=== PATIENT | female | born 1955 | race Caucasian/White ===

== ENCOUNTER 2022-09-07 05:48 | Outpatient (REF) | payer MEDICARE, SELFPAY ==
[2022-09-07 05:55] LABS: MANUAL DIFF FLAG NO
[2022-09-07 06:26] LABS: Basophils Percent Auto 0.5 % (0-2); Eosinophils Absolute Auto 0.3 X10*3/uL (0.0-0.4); Eosinophils Percent Auto 4.7 % (0-4); Hematocrit 35.5 % (37.0-47.0); Hemoglobin 11.8 g/dl (12.0-16.0); Imm Gran Abs Auto 0.02 X10*3/uL (0.00-0.03); Imm Gran Pct Auto 0.4 % (0.0-0.4); Mean Corpuscular HGB Conc 33.2 g/dl (31.0-35.0); Mean Corpuscular Hemoglobin 32.7 pg (27.0-33.0); Mean Corpuscular Volume 98.3 fL (80.0-98.0); Mean Platelet Volume 10.7 fL (9.4-12.3); Monocytes Absolute Auto 0.4 X10*3/uL (0.1-1.2); Neutrophils Absolute Auto 2.7 x10*3/uL (2.0-8.3); Neutrophils Percent Auto 49.4 % (45-73); Platelet Count 245 X10*3/uL (160-400); Red Blood Count 3.61 X10*6/uL (4.20-5.50); Red Cell Distribution Width 12.8 % (11.0-16.0); White Blood Count 5.5 X10*3/uL (4.8-10.8)
[2022-09-07 06:41] LABS: Alanine Aminotransferase 25 U/L (0-31); Albumin Level 3.2 g/dL (3.5-5.0); Alkaline Phosphatase 73 U/L (39-117); Anion Gap 12 (12-20); Aspartate Amino Transferase 20 U/L (5-31); Bilirubin Total 0.3 mg/dL (0.0-1.0); Blood Urea Nitrogen 11 mg/dL (9-16); Carbon Dioxide 23 mmol/L (22-29); Chloride 107 mmol/L (96-108); Estimated Glomerular Filt Rate > 60; Glucose Random 172 mg/dL (60-115); Potassium 4.1 mmol/L (3.3-5.1); Sodium 138 mmol/L (135-145); Total Protein 6.7 g/dL (6.5-8.0)
== END 2022-09-07 05:49 | disposition home or self-care (01) ==
LOC: HO.MMNH2L 05:48
PROVIDERS: Visit Provider Family Medicine
DX: I10 Essential (primary) hypertension (principal); E11.9 Type 2 diabetes mellitus without complications
CPT/HCPCS: 36415; 80053; 85025

== ENCOUNTER 2022-09-13 14:07 | Outpatient (REF) | payer MEDICARE, SELFPAY ==
[2022-09-13 15:14] LABS: CDiff Gene PCR NEGATIVE (Negative)
== END 2022-09-13 14:08 | disposition home or self-care (01) ==
LOC: HO.MMNH2L 14:07
PROVIDERS: Visit Provider Family Medicine
DX: R19.7 Diarrhea, unspecified (principal)
CPT/HCPCS: 87493

== ENCOUNTER 2022-09-14 05:47 | Outpatient (REF) | payer MEDICARE, SELFPAY ==
[2022-09-14 05:50] LABS: MANUAL DIFF FLAG NO
[2022-09-14 06:02] LABS: Basophils Absolute Auto 0.1 X10*3/uL (0.0-0.2); Basophils Percent Auto 0.7 % (0-2); Eosinophils Absolute Auto 0.2 X10*3/uL (0.0-0.4); Eosinophils Percent Auto 3.2 % (0-4); Hemoglobin 11.8 g/dl (12.0-16.0); Imm Gran Abs Auto 0.02 X10*3/uL (0.00-0.03); Imm Gran Pct Auto 0.3 % (0.0-0.4); Lymphocytes Absolute Auto 2.6 X10*3/uL (1.2-4.9); Lymphocytes Percent Auto 35.8 % (20-40); Mean Corpuscular HGB Conc 33.7 g/dl (31.0-35.0); Mean Corpuscular Hemoglobin 32.6 pg (27.0-33.0); Mean Corpuscular Volume 96.7 fL (80.0-98.0); Monocytes Absolute Auto 0.6 X10*3/uL (0.1-1.2); Monocytes Percent Auto 8.7 % (2-11); Neutrophils Absolute Auto 3.7 x10*3/uL (2.0-8.3); Neutrophils Percent Auto 51.3 % (45-73); Platelet Count 356 X10*3/uL (160-400); Red Blood Count 3.62 X10*6/uL (4.20-5.50); Red Cell Distribution Width 12.6 % (11.0-16.0); White Blood Count 7.2 X10*3/uL (4.8-10.8)
[2022-09-14 06:16] LABS: Anion Gap 13 (12-20); Blood Urea Nitrogen 11 mg/dL (9-16); Calcium 9.1 mg/dL (8.4-10.2); Carbon Dioxide 26 mmol/L (22-29); Chloride 104 mmol/L (96-108); Estimated Glomerular Filt Rate > 60; Glucose Random 151 mg/dL (60-115); Potassium 3.9 mmol/L (3.3-5.1); Sodium 139 mmol/L (135-145)
== END 2022-09-14 05:48 | disposition home or self-care (01) ==
LOC: HO.MMNH2L 05:47
PROVIDERS: Visit Provider Family Medicine
DX: I10 Essential (primary) hypertension (principal)
CPT/HCPCS: 36415; 80048; 85025

== ENCOUNTER 2022-09-20 06:20 | Outpatient (REF) | payer MEDICARE, SELFPAY ==
[2022-09-20 06:13] LABS: MANUAL DIFF FLAG NO
[2022-09-20 06:53] LABS: Basophils Percent Auto 0.6 % (0-2); Eosinophils Absolute Auto 0.3 X10*3/uL (0.0-0.4); Eosinophils Percent Auto 4.3 % (0-4); Hematocrit 36.9 % (37.0-47.0); Hemoglobin 12.5 g/dl (12.0-16.0); Imm Gran Abs Auto 0.01 X10*3/uL (0.00-0.03); Imm Gran Pct Auto 0.2 % (0.0-0.4); Lymphocytes Absolute Auto 2.6 X10*3/uL (1.2-4.9); Lymphocytes Percent Auto 41.4 % (20-40); Mean Corpuscular HGB Conc 33.9 g/dl (31.0-35.0); Mean Corpuscular Hemoglobin 33.2 pg (27.0-33.0); Mean Corpuscular Volume 97.9 fL (80.0-98.0); Mean Platelet Volume 10.7 fL (9.4-12.3); Monocytes Absolute Auto 0.5 X10*3/uL (0.1-1.2); Monocytes Percent Auto 8.6 % (2-11); Neutrophils Absolute Auto 2.8 x10*3/uL (2.0-8.3); Neutrophils Percent Auto 44.9 % (45-73); Platelet Count 246 X10*3/uL (160-400); Red Blood Count 3.77 X10*6/uL (4.20-5.50); Red Cell Distribution Width 12.5 % (11.0-16.0); White Blood Count 6.3 X10*3/uL (4.8-10.8)
[2022-09-20 06:57] LABS: Anion Gap 13 (12-20); Blood Urea Nitrogen 11 mg/dL (9-16); Carbon Dioxide 26 mmol/L (22-29); Chloride 104 mmol/L (96-108); Estimated Glomerular Filt Rate > 60; Glucose Random 137 mg/dL (60-115); Sodium 139 mmol/L (135-145)
== END 2022-09-20 06:21 | disposition home or self-care (01) ==
LOC: HO.MMNH2L 06:20
PROVIDERS: Visit Provider Family Medicine
DX: I10 Essential (primary) hypertension (principal)
CPT/HCPCS: 36415; 80048; 85025

== ENCOUNTER 2022-09-27 07:13 | Outpatient (REF) | payer MEDICARE, SELFPAY ==
[2022-09-27 06:16] LABS: MANUAL DIFF FLAG NO
[2022-09-27 06:54] LABS: Basophils Percent Auto 0.6 % (0-2); Eosinophils Absolute Auto 0.3 X10*3/uL (0.0-0.4); Eosinophils Percent Auto 4.4 % (0-4); Hematocrit 36.7 % (37.0-47.0); Hemoglobin 12.4 g/dl (12.0-16.0); Imm Gran Abs Auto 0.01 X10*3/uL (0.00-0.03); Imm Gran Pct Auto 0.1 % (0.0-0.4); Lymphocytes Absolute Auto 2.7 X10*3/uL (1.2-4.9); Lymphocytes Percent Auto 40.2 % (20-40); Mean Corpuscular HGB Conc 33.8 g/dl (31.0-35.0); Mean Corpuscular Hemoglobin 32.6 pg (27.0-33.0); Mean Corpuscular Volume 96.6 fL (80.0-98.0); Monocytes Absolute Auto 0.5 X10*3/uL (0.1-1.2); Monocytes Percent Auto 7.3 % (2-11); Neutrophils Absolute Auto 3.2 x10*3/uL (2.0-8.3); Neutrophils Percent Auto 47.4 % (45-73); Platelet Count 191 X10*3/uL (160-400); Red Cell Distribution Width 12.1 % (11.0-16.0); White Blood Count 6.8 X10*3/uL (4.8-10.8)
[2022-09-27 07:36] LABS: Anion Gap 12 (12-20); Blood Urea Nitrogen 11 mg/dL (9-16); Calcium 9.2 mg/dL (8.4-10.2); Carbon Dioxide 26 mmol/L (22-29); Chloride 106 mmol/L (96-108); Estimated Glomerular Filt Rate > 60; Glucose Random 120 mg/dL (60-115); Potassium 4.3 mmol/L (3.3-5.1); Sodium 140 mmol/L (135-145)
== END 2022-09-27 07:14 | disposition home or self-care (01) ==
LOC: HO.MMNH2L 07:13
PROVIDERS: Visit Provider Family Medicine
DX: I10 Essential (primary) hypertension (principal)
CPT/HCPCS: 36415; 80048; 85025

== ENCOUNTER 2024-12-10 10:29 | Outpatient (AMB) | payer MEDICARE, SELFPAY ==
--- NOTE | 2024-12-10 10:43 | A.OFFVIS_ITS ---
Intake Visit Reasons: 6 Months PD Allergies No Known Allergies Allergy (Verified 12/05/24 08:05) HPI Comments Details: The patient is a 69-year-old female presenting with medication review and insomnia management. She reports difficulties with her sleep pattern, specifically noting an inability to maintain sleep throughout the night. Her sleep issues appear to be ongoing, with no significant exacerbation mentioned. Additionally, the patient experiences weakness in the absence of timely medication administration, although she did not specify which medication caused this. She is not currently experiencing hallucinations, and there are no immediate concerns about her current mood state, which she describes as stable. [facility] Medical History (Updated 12/10/24 @ 10:44 by Vianca Perez MD) Spastic bladder Review of Systems Const Details: - Neurological: Denies hallucinations. - Psychiatric: Reports difficulty maintaining sleep; Denies mood issues. Physical Exam Neuro Other: Mental Status: Alert and oriented to person, place, and time. Normal attention. Normal spontaneous speech, fluency, and comprehension. No obvious issues with mood and memory. Affect is appropriate. Cranial Nerves: CN II: Visual tabor full to confrontation, visual acuity intact. CN III, IV, : Pupils equal, round, reactive to light and accommodation. Extraocular movements are normal. CN V: Facial sensation is normal. CN VII: Facial movements symmetrical. CN VIII: Hearing intact to bedside conversation is normal. CN IX, X: Palate elevates symmetrically. CN XI: Shoulder shrug and head turn symmetrical. CN XII: Tongue midline without atrophy or fasciculations. Extrapyramidal: Full facial expressions and blinking. No rigidity. Movements are appropriate with no tremor or abnormality. Speech: Normal; no dysarthria or tremor. Assessment & Plan Assessment & Plan (1) Parkinson disease: Comment: MRI brain WO at [place] in 2024: Atrophy and MVD (reported) Code(s): G20.A1 - Parkinson's disease without dyskinesia, without mention of fluctuations Category: Medical Qualifiers: Dyskinesia presence: without dyskinesia Fluctuating manifestations: with fluctuating manifestations Qualified Code(s): G20.A2 - Parkinson's disease without dyskinesia, with fluctuations Plan Impression: Stable Parkinson disease Rec: Carbidopa/levodopa 25/100 4-5 times a day Carbidopa/levodopa 50/200 ext rel 3 times a day Medications: New carbidopa-levodopa 25-100 mg 1 tab PO QID 360 tabs 1RF carbidopa-levodopa 50-200 mg ER 1 tab PO TID 270 tabs 1RF Coding Level of Care Code Est Pt Level 4 (20800) Diagnoses Parkinson's disease without dyskinesia, with fluctuating manifestations G20.A2 Dyskinesia presence: without dyskinesia Fluctuating manifestations: with fluctuating manifestations
--- OUTSIDE RECORDS SUMMARY | 2024-12-10 12:49 | XMS_ITS | Encounter Summary ---
Author Organization [facility] Address [id number] [place] [id number] Care Team Providers Care Design Engineering Specialist Name Role Phone Angie Chaudhari MD Primary Care Provider [phone] Encounter Details Date Type Department Care Team (Late st Contact Info) Description 10/18/[address] [facility] - Main Lab [address] [facility] [place] [address] Fawad Roa MD [address] [place] [id number] Type 2 diabetes mellitus without complications (CMS/HCC V24, CMS/HCC V28); Essential (primary) hypertension Social History Tobacco Use Types Packs/Day Years Used Date Smoking Tobacco: Former Cigarettes Q uit: 04/01/2008 Smokeless Tobacco: Never Alcohol Use Standard Drinks/Week Comments No 0 (1 standard drink = 0.6 oz pur e alcohol) Comments Unknown Sex and Gender Information Value Date Recorded Sex Assigned at Not on file Legal Sex Female 9:24 AM EST Gender Identity Not on file Sexual Orientation Not on file documented as of this encounter Plan of Treatment Not on file documented as of this encounter Procedures Procedure Name Priority Date/Time Associated Diagnosis Comments COMPLETE BLOOD COUNT Routine 10/18/2024 5:32 AM EDT Type 2 diabetes mellitus without complications (CMS/HCC V24, CMS/HCC V28) Essential (primary) hypertension HEMOGLOBIN A1C Routine 10/18/2024 5:32 AM EDT Type 2 diabetes mellitus without complications (CMS/HCC V24, CMS/HCC V28) Essential (primary) hypertension COMPREHENSIVE METABOLIC PANEL Routine 10/18/2024 5:32 AM EDT Type 2 diabetes mellitus without complications ([facility] V24, [facility] V28) Essential (primary) hypertension documented in this encounter Results * (ABNORMAL) Hemoglobin A1c (10/18/2024 5:32 AM EDT) Pathologist [facility] Hemoglobin A1C 7.5(H) <6.5 % LAB CHEMISTRY METHOD 10/18/2024 11:26 AM EDT [facility] Mean Bld Glu Estim. 169 mg/dL LAB CHEMISTRY METHOD 10/18/2024 11:26 AM EDT [facility] Blood Venous blood specimen / Unknown Venipuncture / Unknown 10/18/2024 5:32 AM EDT 10/18/2024 6:55 AM EDT Fawad Roa MD LAB BLOOD ORDERABLES Final Result [facility] [address] [place] [address], * (ABNORMAL) Comprehensive metabolic panel (10/18/2024 5:32 AM EDT) Pathologist [facility] Sodium 138 133 - 145 mmol/L LAB CHEMISTRY METHOD 10/18/2024 7:57 AM T [facility] Potassium 4.0 3.5 - 5.5 mmol/L LAB CHEMISTRY METHOD 10/18/2024 7:57 AM T [facility] Chloride 106 96 - 110 mmol/L LAB CHEMISTRY METHOD 10/18/2024 7:57 AM T [facility] CO2 25 21 - 32 mmol/L LAB CHEMISTRY METHOD 10/18/2024 7:57 AM [facility] Anion Gap 7 3 - 11 LAB CHEMISTRY METHOD 10/18/2024 7:57 AM T [facility] Glucose 141(H) 70 - 100 mg/dL LAB CHEMISTRY METHOD 10/18/2024 7:57 AM [facility] BUN 13 5 - 25 mg/dL LAB CHEMISTRY METHOD 10/18/2024 7:57 AM [facility] Creatinine 0.67 0.50 - 1.10 mg/dL LAB CHEMISTRY METHOD 10/18/2024 7:57 AM [facility] eGFR 94 >=60 mL/min/1. 73m2 LAB CHEMISTRY METHOD 10/18/2024 7:57 AM [facility] Comment:Calculation based on the Chronic Kidney Disease Epidemiology Collaboration (CKD-EPI) equation refit without adjustment for race. BUN/Creatinine Ratio 19.4 LAB CHEMISTRY METHOD 10/18/2024 7:57 AM [facility] Calcium 8.8 8.5 - 10.5 mg/dL LAB CHEMISTRY METHOD 10/18/2024 7:57 AM [facility] AST (SGOT) 9(L) 10 - 42 unit/L LAB CHEMISTRY METHOD 10/18/2024 7:57 AM [facility] ALT (SGPT) 13 10 - 60 unit/L LAB CHEMISTRY METHOD 10/18/2024 7:57 AM [facility] Alkaline Phosphatase 66 42 - 121 unit/L LAB CHEMISTRY METHOD 10/18/2024 7:57 AM [facility] Total Protein 6.6 6.0 - 8.0 g/dL LAB CHEMISTRY METHOD 10/18/2024 7:57 AM [facility] Albumin 3.2 3.2 - 5.0 g/dL LAB CHEMISTRY METHOD 10/18/2024 7:57 AM [facility] Total Bilirubin 0.6 0.0 - 1.4 mg/dL LAB CHEMISTRY METHOD 10/18/2024 7:57 AM [facility] Blood Venous blood specimen / Unknown Venipuncture / Unknown 10/18/2024 5:32 AM EDT 10/18/2024 6:55 AM EDT us Fawad Roa MD LAB BLOOD ORDERABLES Final Result [facility] [address] [place] [address], [place] [phone] * (ABNORMAL) Complete blood count (10/18/2024 5:32 AM EDT) WBC 6.2 4.8 - 10.8 K/mcL LAB HEMETOLOGY METHOD 10/18/2024 7:22 AM EDT [facility] RBC 3.60(L) 3.80 - 4.80 M/mcL LAB HEM[facility]OLOGY [facility] Hemoglobin 12.0 11.5 - 16.0 g/dL LAB HEMETOLOGY METHOD 10/18/2024 7:22 AM T [facility] Hematocrit 35.0 35.0 - 47.0 % LAB HEMETOLOGY METHOD 10/18/2024 7:22 AM EDT [facility] MCV 96.2 79.0 - 98.0 FL LAB HEMETOLOGY METHOD 10/18/2024 7:22 AM [facility] MCH 33.0(H) 27.0 - 32.0 pcg LAB HEMETOLOGY METHOD 10/18/2024 7:22 AM EDT [facility] MCHC 34.3 32.0 - 37.0 g/dL LAB HEMETOLOGY METHOD 10/18/2024 7:22 AM EDT [facility] RDW 12.4 11.0 - 15.0 % LAB HEMETOLOGY METHOD 10/18/2024 7:22 AM [facility] Platelets 291 130 - 400 K/mcL LAB HEMETOLOGY METHOD 10/18/2024 7:22 AM EDT [facility] MPV 9.9 7.0 - 11.0 FL LAB HEMETOLOGY METHOD 10/18/2024 7:22 AM EDT [facility] NRBC 0.0 <1.0 % LAB HEMETOLOGY METHOD 10/18/2024 7:22 AM EDT [facility] NRBC Absolute 0.00 <0.10 K/mcL [facility] 10/18/2024 7:22 AM EDT [facility] Blood Venous blood specimen / Unknown Venipuncture / Unknown 10/18/2024 5:32 AM EDT 10/18/2024 6:55 AM EDT Fawad Roa MD LAB BLOOD ORDERABLES Final Result [facility] [address] [place] [address], documented in this encounter Visit Diagnoses Diagnosis Type 2 diabetes mellitus without complications (CMS/HCC V24, CMS/HCC V28) Essential (primary) hypertension Unspecified essential hypertension documented in this encounter Care Teams Design Engineering Specialist Relationship Specialty Start Date End Date Angie Chaudhari MD [address] [place] [phone] PCP - General 06/21/06 documented as of this encounter
--- OUTSIDE RECORDS SUMMARY | 2024-12-10 12:49 | XMS_ITS | Clinical Summary ---
Author Organization [address] Address [address] [place] [phone] Phone Care Team Providers Care [facility] Chemist Name Role Phone Angie Chaudhari MD Primary Care Provider [phone] Allergies No known active allergies Medications blood-glucose meter kit Use to check blood sugar once daily 03/10/2021 Active blood-glucose meter kit To use to check sugars 02/26/2021 Active glucose blood test strip To check sugars 02/26/2021 Active lancets lancets To check sugars once daily. 03/10/2021 Active lancets lancets Use to check blood sugar once daily 03/10/2021 Active ONETOUCH DELICA LANCETS MISC To use to check sugars 02/26/2021 Active carbidopa-levod opa (SINEMET) 25-100 mg per tablet Take 1 tablet by mouth 1 (one) time each day. 12/30/2020 Active cyanocobalamin (VITAMIN B-12) 1,000 mcg tablet Take 1 tablet (1,000 mcg total) by mouth 1 (one) time each day. 01/01/2021 Active ibuprofen (ADVIL,MOTRIN) 800 mg tablet Take 1 tablet (800 mg total) by mouth every 8 (eight) hours if needed (Pain). 08/06/2022 Active lisinopriL (PRINIVIL,ZESTR IL) 20 mg tablet Take 1 tablet (20 mg total) by mouth 1 (one) time each day. 08/06/2022 Active metFORMIN (GLUCOPHAGE) 500 mg tablet Take 1 tablet (500 mg total) by mouth 1 (one) time each day with breakfast. 08/06/2022 Active tamsulosin (FLOMAX) 0.4 mg 24 hr capsule Take 1 capsule (0.4 mg total) by mouth 1 (one) time each day. 08/06/2022 Active Active Problems Problem Noted Date Diagnosed Date Cognitive impairment 01/30/2021 Parkinson disease ([facility] V24, [facility] V28) 02/2021 Rhabdomyolysis 01/30/2021 Overview (03/27/2024): 01/08 episode with lactic acidosis Obesity (BMI 30.0-34.9) 10/25/2017 Hypertension 12/22/2015 Diabetes mellitus type 2, un complicated ([facility] V24, [facility] V28) 10/23/2013 Hypercholesteremia 10/02/2011 Onychomycosis 09/30/2011 Allergic rhinitis 08/24/2006 Asthma 08/24/2006 Encounters Date Type Department Care Team Description 11/27/2024 Lab Requisition [facility] [address] [place] [id number] Fawad Roa MD Dysuria; Hematuria, unspecified 10/18/2024 Lab Requisition [facility] [address] [place] [phone] Fawad Roa MD Type 2 diabetes mellitus without complications ([facility] V24, [facility] V28); Essential (primary) hypertension from Last 3 Months Immunizations Name Administration Dates Next Due Influenza Quadravalent, MDCK , 0.5ml, preservative free (Flucelvax) 6mo and older 11/27/2018,12/19/2017 Influenza trivalent, 0.5mL ( Fluzone High-dose) 65yo and older 12/21/2021,01/30/2021,01/10/2014,12/25 Influenza trivalent, 0.5mL, preservative free (Fluarix; FluLaval; Fluzone) ages 6mo and older (Afluria) 3 years and older 01/24/2017,12/31/2015,12/26/2014 Influenza trivalent, with pr eservative (Fluzone; Afluria) 6mo and older 12/21/2021,01/30/2021,11/27/2018,12/19,01/24/2017,12/31/2015,12/26/2014 ,01/10/2014,12/25/2012 Influenza, Unspecified 01/24/2017,12/26/2014 Pneumococcal polysaccharide 23 valent (Pneumovax 23) 2yo and older 06/10/2014 Td Tetanus diptheria (Tdvax) 7yo and older 12/17/2016 Tdap Tetanus diptheria acell ular pertussis (Boostrix; Adacel) 7yo and older 08/24/2006 Surgical History Surgery Date Site/Laterality Comments HYSTERECTOMY PROCEDURE: HISTORICAL HYSTERECTOMY; COMMENT: ovaries left, menorrhagia CHOLECYSTECTOMY PROCEDURE: HISTORICAL CHOLECYSTECTOMY OTHER SURGICAL HISTORY 09/2017 PROCEDURE: MAMMOGRAM COLONOSCOPY 2014 PROCEDURE: HISTORICAL COLONOSCOPY; COMMENT: normal BREAST SURGERY 1970ish Left PROCEDURE: NC UNLISTED PROCEDURE BREAST; COMMENT: cyst removed lt. axilla-age 16 Medical History Medical History Date Comments Unspecified asthma(493.90) 08/24/2006 DX:Un specified asthma(493.90) Allergic rhinitis, cause unspecified 08/24/2006 DX:Allergic rhinitis, cause unspecified Hypercholesteremia 10/02/2011 DX:Hyperchole steremia Rhabdomyolysis 01/30/2021 DX:Rhabdomyolysi s; COMMENT: 01/08 episode with lactic acidosis Parkinson disease ([facility] V 24, [facility] V28) 01/30/2021 DX:Parkinson disease ([facility]) Cognitive impairment 01/30/2021 DX:Cognitiv e impairment Family History Medical History Relation Name Comments Breast cancer Aunt 1 p 80 paternal aunt- same as #17 Other: Alzheimer's Aunt 2 in h er 80s; paternal Other: pulmonary embolus Aunt 3 pat ernal aunt-after knee surg Heart attack Brother 57 Other: spina bifida Daughter Other: bone cancer Father 66 Diabetes Maternal Grandmother in her late 70s Ovarian cancer Mother 74, diab etes,thyroid disease ? type Diabetes Sister Diabetes Uncle 1 dialysis, strok e Other: heart attack Uncle 2 you ng, maternal Relation Name Status Comments Aunt 1 p 80 Aunt 2 Aunt 3 Brother Daughter Father Maternal Grandmother Mother Sister Uncle 1 Uncle 2 Social History Tobacco Use Types Packs/Day Years [...] on file Sexual Orientation Not on file Obstetrics History Last Filed Vital Signs Vital Sign Reading Time Taken Comments Blood Pressure 122/70 08/06/2022 8:59 AM EDT Pulse 90 08/06/2022 8:59 AM EDT Temperature - - Respiratory Rate - - Oxygen Saturation - - Inhaled Oxygen Concentration - - Weight 87.4 kg (192 lb 11.2 oz) 08/06/2022 8:59 AM EDT Height 165.1 cm (5' 5 ) 08/06/2022 8:59 AM EDT Body Mass Index 32.07 08/06/2022 8:59 AM EDT Plan of Treatment Health Maintenance Due Date Last Done Comments Diabetes: Annual Foot Exam 01/09/1964 Diabetes: Annual Retina Eye Exam 01/09/1964 Zoster Vaccines (1 of 2) 01/09/2004 RSV Immunization Adult Patients (1 - Risk 60-74 years 1-dose series) 2014 Breast Cancer Screening 10/21/2020 10/22/19 19, 10/15/2017, 10/02/2016 Falls Risk Assessment 02/27/2022 Medicare Annual Wellness Visit 02/27/2022 Osteoporosis Screening (Bone Density Screening) 02/27/2022 Social Influencers of Health Screening 02/27/2022 Diabetes: Annual Urine Albumin-Creatinine Ratio (uACR) 08/07/2023 08/06/2022 Depression Screening 03/21/2024 COVID-19 Vaccine ( season) 2024 12/19/2023, 02/28/2023, 07/05/2022 Influenza Vaccine (#1) 2024 , 12/21/2022, 12/21/2021, Additional history exists Colorectal Cancer Screening: Colonoscopy 03/10/2025 03/10/2015 Diabetes: Blood Sugar Control Test (HGBA1C) 04/20/2025 10/18/2024, 06/26/2024, 03/08/2024, Additional history exists Diabetes: Annual GFR (Glomerular Filtration Rate) 10/18/2025 10/18/2024, 06/26/2024, 03/08/2024, Additional history exists Hypertension/CHF/CAD Annual BMP Blood Test 10/18/2025 10/18/2024, 06/26/2024, 03/08/2024, Additional history exists DTaP,Tdap,and Td Vaccines (3 - Td or Tdap) 12/17/2026 12/17/2016, 08/24/2006 Cholesterol Screening (Lipid Panel) 08/07/2027 08/06/2022 Hepatitis C Screening Completed 09/29/2012 Pneumococcal Vaccine: 50+ Years Completed 01/20/2024, 12/31/2022, 06/10/2014 HIB Vaccines Aged Out No longer eligi ble based on patient's age to complete this topic HPV Vaccines Aged Out No longer eligi ble based on patient's age to complete this topic Hepatitis A Vaccines Aged Out No long er eligible based on patient's age to complete this topic Hepatitis B Vaccines Aged Out No long er eligible based on patient's age to complete this topic IPV Vaccines Aged Out No longer eligi ble based on patient's age to complete this topic MMR Vaccines Aged Out No longer eligi ble based on patient's age to complete this topic Meningococcal ACWY Vaccine Aged Out N o longer eligible based on patient's age to complete this topic Meningococcal B Vaccine Aged Out No l onger eligible based on patient's age to complete this topic RSV Immunization Patients Under 20 months Aged Out No longer eligible based on patient's age to complete this topic Varicella Vaccines Aged Out No longer eligible based on patient's age to complete this topic Procedures Procedure Name Priority Date/Time Associated Diagnosis Comments URINALYSIS WITH REFLEX MICROSCOPIC Routine 11/26/2024 8:30 PM EDT Dysuria Hematuria, unspecified URINALYSIS WITH REFLEX MICROSCOPIC Routine 11/26/2024 8:30 PM EDT Dysuria Hematuria, unspecified CULTURE URINE Routine 11/26/2024 8:30 PM EDT Dysuria Hematuria, unspecified HEMOGLOBIN A1C Routine 10/18/2024 5:32 AM EDT Type 2 diabetes mellitus without complications ([facility] V24, [facility] V28) Essential (primary) hypertension COMPREHENSIVE METABOLIC PANEL Routine 10/18/2024 5:32 AM EDT Type 2 diabetes mellitus without complications ([facility] V24, [facility] V28) Essential (primary) hypertension COMPLETE BLOOD COUNT Routine 10/18/2024 5:32 AM EDT Type 2 diabetes mellitus without complications ([facility] V24, [facility] V28) Essential (primary) hypertension HM URINE ALBUMIN CREATININE RATIO Routine 08/06/2022 LIPID PANEL Routine 08/06/2022 SCR MAMMO BI INCL CAD Routine 10/21/2018 10:57 AM EDT Encounter for screening mammogram for malignant neoplasm of breast COLONOSCOPY Routine 03/10/2015 HEPATITIS C SCREENING Routine 09/29/2012 from Last 3 Months or Most Recently Relevant to Health Maintenance Results * (ABNORMAL) Urinalysis with reflex microscopic (11/26/2024 8:30 PM EDT) Specific Bryant Urine 1.023 1.003 - 1.030 LAB URINALYSIS - AUTOMATED METHOD 11/27/2024 11:54 AM [facility] pH, Urine 6.5 5.0 - 8.0 pH LAB URINALYSIS - AUTOMATED METHOD 11/27/2024 11:54 AM [facility] Leukocytes, Urine Moderate(A) Negative LAB URINALYSIS - AUTOMATED METHOD 11/27/2024 11:54 AM [facility] Nitrite, Urine Positive(A) Negative LAB URINALYSIS - AUTOMATED METHOD 11/27/2024 11:54 AM [facility] Protein, Urine 300(A) <=Trace mg/dL LAB URINALYSIS - AUTOMATED METHOD 11/27/2024 11:54 AM [facility] Glucose, Urine Negative Negative mg/dL LAB URINALYSIS - AUTOMATED METHOD 11/27/2024 11:54 AM [facility] Ketones, Urine Trace(A) Negative mg/dL LAB URINALYSIS - AUTOMATED METHOD 11/27/2024 11:54 AM [facility] Urobilinogen , Urine 0.2 0.2 - 1.0 mg/dL LAB URINALYSIS - AUTOMATED METHOD 11/27/2024 11:54 AM [facility] Bilirubin, Urine Negative Negative LAB URINALYSIS - AUTOMATED METHOD 11/27/2024 11:54 AM [facility] Blood, Urine Large(A) Negative LAB URINALYSIS - AUTOMATED METHOD 11/27/2024 11:54 AM [facility] RBC, Urine 56.6(H) 0 - 4 /HPF LAB URINALYSIS - AUTOMATED METHOD 11/27/2024 11:54 AM [facility] WBC, Urine 942.2(H) 0 - 4 /HPF LAB URINALYSIS - AUTOMATED METHOD 11/27/2024 11:54 AM [facility] Squamous Epithelial, Urine 65(H) 0 - 60 /LPF LAB URINALYSIS - AUTOMATED METHOD 11/27/2024 11:54 AM [facility] Bacteria, Urine Few(A) Negative /HPF LAB URINALYSIS - AUTOMATED METHOD 11/27/2024 11:54 AM [facility] Hyaline Casts, Urine 1.0 0 - 3 /LPF LAB URINALYSIS - AUTOMATED METHOD 11/27/2024 11:54 AM [facility] Urine Urine specimen obtained by clean catch procedure / Unknown Non-blood Collection / Unknown 11/26/2024 8:30 PM EDT 11/27/2024 10:01 AM EDT Fawad Roa MD LAB URINE ORDERABLES Final Result [facility] [address] [place] [address], [place] [phone] * (ABNORMAL) Culture urine (11/26/2024 8:30 PM EDT) Culture, Urine 50,000-100,000 CFU/mL Escherichia coli(A) ARACELY 11/29/2024 9:22 AM EDT [facility] Urine Urine specimen obtained by clean catch procedure / Unknown Non-blood Collection / Unknown 11/26/2024 8:30 PM EDT 11/27/2024 10:01 AM EDT Narrative [facility] - 11/29/2024 9:22 AM EDT Additional colony types present in insignificant amounts. Organism Antibiotic Method Susceptibility Escherichia coli Amoxicillin/Clavulanate ARACELY >=32 ug/ml: Resistant Escherichia coli Ampicillin/Sulbactam ARACELY >=32 ug/ml: Resistant Escherichia coli Piperacillin/Tazobactam ARACELY <=4 ug/ml: Susceptible Escherichia coli Cefazolin (Urine) ARACELY 16 ug/ml: Susceptible Escherichia coli Cefoxitin ARACELY 16 ug/ml: Intermediate Escherichia coli Ceftazidime ARACELY <=0.5 ug/ml: Susceptible Escherichia coli Ceftriaxone ARACELY <=0.25 ug/ml: Susceptible Escherichia coli Cefepime ARACELY <=0.12 ug/ml: Susceptible Escherichia coli Meropenem ARACELY <=0.25 ug/ml: Susceptible Escherichia coli Amikacin ARACELY 2 ug/ml: Susceptible Escherichia coli Gentamicin ARACELY <=1 ug/ml: Susceptible Escherichia coli Ciprofloxacin ARACELY <=0.06 ug/ml: Susceptible Escherichia coli Levofloxacin ARACELY <=0.12 ug/ml: Susceptible Escherichia coli Nitrofurantoin ARACELY <=16 ug/ml: Susceptible Escherichia coli Trimethoprim/Sulfamethoxazole ARACELY <=20 ug/ml: Susceptible Fawad Roa MD LAB MICROBIOLOGY - GENERAL ORDERABLES Final Result [facility] [address] [place] [address], * (ABNORMAL) Complete blood count (10/18/2024 5:32 AM EDT) [facility] WBC 6.2 4.8 - 10.8 K/mcL LAB HEMETOLOGY METHOD 10/18/2024 7:22 AM [facility] RBC 3.60(L) 3.80 - 4.80 M/mcL LAB HEMETOLOGY METHOD 10/18[facility]24 [facility] Hemoglobin 12.0 11.5 - 16.0 g/dL LAB HEMETOLOGY METHOD 10/18/2024 7:22 AM [facility] Hematocrit 35.0 35.0 - 47.0 % LAB HEMETOLOGY METHOD 10/18/2024 7:22 AM [facility] MCV 96.2 79.0 - 98.0 FL LAB HEMETOLOGY METHOD 10/18/2024 7:22 AM [facility] MCH 33.0(H) 27.0 - 32.0 pcg LAB HEMETOLOGY METHOD 10/18/2024 7:22 AM [facility] MCHC 34.3 32.0 - 37.0 g/dL LAB HEMETOLOGY METHOD 10/18/2024 7:22 AM [facility] RDW 12.4 11.0 - 15.0 % LAB HEMETOLOGY METHOD 10/18/2024 7:22 AM [facility] Platelets 291 130 - 400 K/mcL LAB HEMETOLOGY METHOD 10/18/2024 7:22 AM [facility] MPV 9.9 7.0 - 11.0 FL LAB HEMETOLOGY METHOD 10/18/2024 7:22 AM [facility] NRBC 0.0 <1.0 % LAB HEMETOLOGY METHOD 10/18/2024 7:22 AM EDT [facility] NRBC Absolute 0.00 <0.10 K/mcL LAB HEMETOLOGY METHOD 10/18/2024 7:22 AM EDT [facility] Blood Venous blood specimen / Unknown Venipuncture / Unknown 10/18/2024 5:32 AM EDT 10/18/2024 6:55 AM EDT us Fawad Roa MD LAB BLOOD ORDERABLES Final Result Performing Organization Address [facility] de Phone Number [facility] [address] [place] [address], [place] [phone] * (ABNORMAL) Hemoglobin A1c (10/18/2024 5:32 AM EDT) Hemoglobin A1C 7.5(H) <6.5 % LAB CHEMISTRY METHOD 10/18/2024 11:26 AM EDT [facility] Mean Bld Glu Estim. 169 mg/dL LAB CHEMISTRY METHOD 10/18/2024 11:26 AM EDT [facility] Blood Venous blood specimen / Unknown Venipuncture / Unknown 10/18/2024 5:32 AM EDT 10/18/2024 6:55 AM EDT us Fawad Roa MD LAB BLOOD ORDERABLES Final Result Performing Organization Address [facility]/ZIP Co de Phone Number [facility] [address] [place] [address], [place] [phone] * (ABNORMAL) Comprehensive metabolic panel (10/18/2024 5:32 AM EDT) Sodium 138 133 - 145 mmol/L LAB CHEMISTRY METHOD 10/18/2024 7:57 AM EDT [facility] Potassium 4.0 3.5 - 5.5 mmol/L LAB CHEMISTRY METHOD 10/18/2024 7:57 AM EDT [facility] Chloride 106 96 - 110 mmol/L LAB CHEMISTRY METHOD 10/18/2024 7:57 AM [facility] CO2 25 21 - 32 mmol/L LAB CHEMISTRY METHOD 10/18/2024 7:57 AM [facility] Anion Gap 7 3 - 11 LAB CHEMISTRY METHOD 10/18/2024 7:57 AM [facility] Glucose 141(H) 70 - 100 mg/dL LAB CHEMISTRY METHOD 10/18/2024 7:57 AM [facility] BUN 13 5 - 25 mg/dL LAB CHEMISTRY METHOD 10/18/2024 7:57 AM [facility] Creatinine 0.67 0.50 - 1.10 mg/dL LAB CHEMISTRY METHOD 10/18/2024 7:57 AM [facility] eGFR 94 >=60 mL/min/1. 73m2 LAB CHEMISTRY METHOD 10/18/2024 7:57 AM [facility] Comment:Calculation based on the Chronic Kidney Disease Epidemiology Collaboration (CKD-EPI) equation refit without adjustment for race. BUN/Creatinine Ratio 19.4 LAB CHEMISTRY METHOD 10/18/2024 7:57 AM [facility] Calcium 8.8 8.5 - 10.5 mg/dL LAB CHEMISTRY METHOD 10/18/2024 7:57 AM [facility] AST (SGOT) 9(L) 10 - 42 unit/L LAB CHEMISTRY METHOD 10/18/2024 7:57 AM [facility] ALT (SGPT) 13 10 - 60 unit/L LAB CHEMISTRY METHOD 10/18/2024 7:57 AM [facility] Alkaline Phosphatase 66 42 - 121 unit/L LAB CHEMISTRY METHOD 10/18/2024 7:57 AM [facility] Total Protein 6.6 6.0 - 8.0 g/dL LAB CHEMISTRY METHOD 10/18/2024 7:57 AM [facility] Albumin 3.2 3.2 - 5.0 g/dL LAB CHEMISTRY METHOD 10/18/2024 7:57 AM EDT [facility] Total Bilirubin 0.6 0.0 - 1.4 mg/dL LAB CHEMISTRY METHOD 10/18/2024 7:57 AM EDT [facility] Blood Venous blood specimen / Unknown Venipuncture / Unknown 10/18/2024 5:32 AM EDT 10/18/2024 6:55 AM EDT Fawad Roa MD LAB BLOOD ORDERABLES Final Result [facility] [address] [place] [address], * Urine Albumin Creatinine Ratio (08/06/2022) Urine Albumin Creatinine Ratio Abstracted Historical Provider HEALTH MAINTENANCE Final Result * Lipid panel (08/06/2022) LDL/HDL Ratio 3 0 - 4 Triglycerides 111 0 - 150 mg/dL Cholesterol 149 0 - 200 mg/dL HDL 51 >=40 mg/dL LDL Cholesterol 76 0 - 100 mg/dL Blood Venous blood specimen / Unknown Historical Provider LAB BLOOD ORDERABLES Katelyn l Result * SCR MAMMO BI INCL CAD (10/21/2018 10:57 AM EDT) Anatomical Region Laterality Modality Radiographic Anila ging 10/15/2017 9:42 AM EDT Narrative 10/23/2018 8:45 AM EDT This is a summary report. The complete report is available in the patient's medical record. If you cannot access the medical record, please contact the sending organization for a detailed fax or copy. Full field digital screening mammography, reviewed with CAD and compared to previous. The breasts are composed of fatty and fibroglandular tissue. No suspicious mass, architectural distortion or suspicious calcifications are identified. IMPRESSION: : No mammographic evidence of malignancy. BIRADS 1-Negative; N. 5 year breast cancer risk assessment 1.4 % Lifetime breast cancer risk assessment 5.8 % Breast cancer risk category Low (<15%) Procedure Note Renu Manzanares - 03/09/2022 This is a summary report. The complete report is available in thepatient's medical record. If you cannot access the medical record, pleasecontact the sending organization for a detailed fax or copy. Full field digital screening mammography, reviewed with CAD and comparedto previous. The breasts are composed of fatty and fibroglandular tissue.No suspicious mass, architectural distortion or suspicious calcificationsare identified. IMPRESSION: : No mammographic evidence of malignancy. BIRADS 1-Negative; N. 5 year breast cancer risk assessment 1.4 % Lifetime breast cancer risk assessment 5.8 % Breast cancer risk category Low (<15%) Angie Chaudhari MD IMG XR PROCEDURES Final Result * Colonoscopy (03/10/2015) Colonoscopy No interpretation , abstracted Anatomical Region Laterality Modality Other Historical Provider HEALTH MAINTENANCE Final Result * Hepatitis C Screening (09/29/2012) Pathologist [facility] Hepatitis C Screening Abstracted Historical Provider HEALTH MAINTENANCE Final Result from Last 3 Months or Most Recently Relevant to Health Maintenance Insurance [employer] MEDICARE ADVANTAGE MEDICAID - [place] Care Teams Hplc Chemist Relationship Specialty Start Date End Date Angie Chaudhari MD [address] [place] [id number] PCP - General 06/21/06
--- OUTSIDE RECORDS SUMMARY | 2024-12-10 12:49 | XMS_ITS ---
Author Organization [facility] Support Name Relationship Address Phone LALO HARDWICK Personal Relationship [address] [place] [address] Iris Thomas Guarantor [address] [place] [address] Iris Thomas Personal Relationship [address] [place] [address] MIREILLE THOMAS Personal Relationship [address] [place] [address] Care Team Providers Care Airborne Electronics Analyst Name Role Phone Eddie Reich Unavailable Unavailable Yue Su Unavailable Unavailable LevPerla hager Unavailable Unavailable Allergies and adverse reactions No Known Allergies Care Team Name Role Address Phone Organization Dates Eddie Reich PCP [address], [address], [facility] (Office): : [facility] 09/06/2022 - 10/02/2022 Yue Su [address], [address], [facility] (Office): : [facility] 09/06/2022 - 10/02/2022 Perlaarie Clark [address], [address], [place] (Office): [facility] 09/06/2022 - 10/02/2022 Immunizations Immunization Status Vaccine Details Vaccine Code CodeSystem Date Notes Influenza completed Influenza, split virus, trivalent, injectable, contains preservative 141 CVX created date: 09/07/2022 administere d date: 12/21/2021 Tetanus completed tetanus immune globulin 13 CVX created date: 09/07/2022 administere d date: 12/17/2016 PPSV23 (Previous Pneumococcal Polysaccharide)Va ccine completed pneumococcal polysaccharide vaccine, 23 valent 33 CVX created date: 09/07/2022 administere d date: 06/10/2014 [employer] Covid-19 Bi-valent Solution completed SARS-COV-2 (COVID-19) vaccine, mRNA, spike protein, LNP, bivalent, preservative free, 30 mcg/0.3 mL dose, sarai-sucrose formulation 300 CVX created date: 09/07/2022 administere d date: 07/05/2022 Mental Status Section Date Assessment Total Score Description 10/02/2022 BIMS 15 cognitively int act CAM 0 No delirium ind icated PHQ-9 01 minimal depress ion 09/11/2022 BIMS 15 cognitively int act CAM 0 No delirium ind icated PHQ-9 02 minimal depress ion Problems Problem # Description Date of onset Resolved Date Code CodeSystem Concern Status 1 TYPE 2 DIABETES MELLITUS WITHOUT COMPLICATIONS 09/07/[address] active 2 WEAKNESS 09/07/[address] active 3 ESSENTIAL (PRIMARY) HYPERTENSION 09/06/[address] active 4 HISTORY OF FALLING 09/06/[address] active 5 MULTIPLE FRACTURES OF RIBS, UNSPECIFIED SIDE, SUBSEQUENT ENCOUNTER FOR FRACTURE WITH ROUTINE HEALING 09/06/[address] active 6 PARKINSON'S DISEASE 09/06/2022 53021777 SNOM[address] C T active 7 RHABDOMYOLYSIS 09/06/[address] ac tive 8 UNSPECIFIED PROTEIN-CALORIE MALNUTRITION 09/06/[address] active 9 WEDGE COMPRESSION FRACTURE OF T11-T12 VERTEBRA, SUBSEQUENT ENCOUNTER FOR FRACTURE WITH ROUTINE HEALING 09/06/[address] active Reason for Referral No Reasons for Referral Entered Social History Social History Observation Description Start Date End Date Code Code System Current Smoking Status Tobacco smoking consumption unknown 401052100 SNOMED CT Sex Assigned At Female 1955 53492-3 LOINC Gender Identity Sexual Orientation Vital Signs Code Code System Vitals Name Values and Units Timing Information 2339-0 LOINC Blood Sugar Qxxtp=565.0 Units=mg/dL 10/02/2022 53496-0 [facility] Pain Level Value=0.0 10/02/2022 9279-1 [facility] Respiratory Rate Value=18.0 Units=/m in 10/01/2022 8462-4 [facility] Blood Pressure-Diastolic Value=68 Un its=mmHg 10/01/2022 8480-6 [facility] Blood Pressure-Systolic Xqrlk=433 Un its=mmHg 10/01/2022 8310-5 [facility] Body Temperature Value=97.5 Units= F 10/01/2022 8867-4 [facility] Heart rate Value=68.0 Units=/min 53498-6 [facility] O2 % BldC Oximetry Value=97.0 Units= % 09/30/2022 98203-6 [facility] Weight Dpuww=698.6 Units=Lbs 07/2022 8302-2 [facility] Height Value=64.0 Units=Inches 09/06/2022
--- OUTSIDE RECORDS SUMMARY | 2024-12-10 12:49 | XMS_ITS ---
Author Name CRISP Organization Unknown Care Team Organization Name Specialty Phone Email Start Date End Da te [facility] 01/26/2022 11/07/2023
--- OUTSIDE RECORDS SUMMARY | 2024-12-10 12:49 | XMS_ITS | Encounter Summary ---
Author Organization [facility] Address [address] [place] [address] Care Team Providers Care Quality Assurance Calibrator Name Role Phone Angie Chaudhari MD Primary Care Provider [phone] Encounter Details Date Type Department Care Team (Late st Contact Info) Description 11/27/2024 Lab Requisition [facility] - Main Lab [address] [facility] [place] [address] Fawad Roa MD [address] [place] [address] Dysuria; Hematuria, unspecified Social History Tobacco Use Types Packs/Day Years [...] 11/26/2024 8:30 PM EDT Dysuria Hematuria, unspecified documented in this encounter Results * (ABNORMAL) Urinalysis with reflex microscopic (11/26/2024 8:30 PM ED) Specific [place] Urine 1.023 1.003 - 1.030 LAB URINALYSIS - AUTOMATED METHOD 11/27/2024 11:54 AM [facility] pH, Urine 6.5 5.0 - 8.0 pH LAB URINALYSIS - AUTOMATED METHOD 11/27/2024 11:54 AM [facility] Leukocytes, Urine Moderate(A) Negative LAB URINALYSIS - AUTOMATED METHOD 11/27/2024 11:54 AM [facility] Nitrite, Urine Positive(A) Negative LAB URINALYSIS - AUTOMATED METHOD 11/27/2024 11:54 AM [facility] Protein, Urine 300(A) <=Trace mg/dL LAB URINALYSIS - AUTOMATED METHOD 11/27/2024 11:54 AM [facility] Glucose, Urine Negative Negative mg/dL LAB URINALYSIS - AUTOMATED METHOD 11/27/2024 11:54 AM [facility] Ketones, Urine Trace(A) Negative mg/dL LAB URINALYSIS - AUTOMATED METHOD 11/27/2024 11:54 AM [facility] Urobilinogen , Urine 0.2 0.2 - 1.0 mg/dL LAB URINALYSIS - AUTOMATED METHOD 11/27/2024 11:54 AM [facility] Bilirubin, Urine Negative Negative LAB URINALYSIS - AUTOMATED METHOD 11/27/2024 11:54 AM [facility] Blood, Urine Large(A) Negative LAB URINALYSIS - AUTOMATED METHOD 11/27/2024 11:54 AM [facility] RBC, Urine 56.6(H) 0 - 4 /HPF LAB URINALYSIS - AUTOMATED METHOD 11/27/2024 11:54 AM [facility] WBC, Urine 942.2(H) 0 - 4 /HPF LAB URINALYSIS - AUTOMATED METHOD 11/27/2024 11:54 AM EDT [facility] Squamous Epithelial, Urine 65(H) 0 - 60 /LPF LAB URINALYSIS - AUTOMATED METHOD 11/27/2024 11:54 AM EDT [facility] Bacteria, Urine Few(A) Negative /HPF LAB URINALYSIS - AUTOMATED METHOD 11/27/2024 11:54 AM EDT [facility] Hyaline Casts, Urine 1.0 0 - 3 /LPF LAB URINALYSIS - AUTOMATED METHOD 11/27/2024 11:54 AM EDT [facility] Urine Urine specimen obtained by clean catch procedure / Unknown Non-blood Collection / Unknown 11/26/2024 8:30 PM EDT 11/27/2024 10:01 AM EDT Fawad Roa MD LAB URINE ORDERABLES Final Result [facility] [address] [place] [address], * (ABNORMAL) Culture urine (11/26/2024 8:30 PM EDT) Culture, Urine 50,000-100,000 CFU/mL Escherichia coli(A) ARACELY 11/29/2024 9:22 AM EDT [facility] Urine Urine specimen obtained by clean catch procedure / Unknown Non-blood Collection / Unknown 11/26/2024 8:30 PM EDT 11/27/2024 10:01 AM EDT Narrative [facility] - 11/29/2024 9:22 AM EDT Additional [...] ARACELY <=0.12 ug/ml: Susceptible Escherichia coli Meropenem ARAECLY <=0.25 ug/ml: Susceptible Escherichia coli Amikacin ARACELY 2 ug/ml: Susceptible Escherichia coli Gentamicin ARACELY <=1 ug/ml: Susceptible Escherichia coli Ciprofloxacin ARACELY <=0.06 ug/ml: Susceptible Escherichia coli Levofloxacin ARACELY <=0.12 ug/ml: Susceptible Escherichia coli Nitrofurantoin ARACELY <=16 ug/ml: Susceptible Escherichia coli Trimethoprim/Sulfamethoxazole ARACELY <=20 ug/ml: Susceptible Fawad Roa MD LAB MICROBIOLOGY - GENERAL ORDERABLES Final Result [facility] H[facility] LAB [address] [place] [address], documented in this encounter Visit Diagnoses Diagnosis Dysuria Hematuria, unspecified documented in this encounter Care Teams Quality Assurance Calibrator Relationship Specialty Start Date End Date Angie Chaudhari MD [address] [place] [address] PCP - General 06/21/06 documented as of this encounter
--- OUTSIDE RECORDS SUMMARY | 2024-12-10 12:49 | XMS_ITS | Encounter Summary ---
Author Organization [facility] Address [address] [place] [address] Care Team Providers Care Cable Tv Installer Name Role Phone Angie Chaudhari MD Primary Care Provider [phone] Encounter Details Date Type Department Care Team (Late st Contact Info) Description 02/27/2024 Lab Requisition [facility] - Main Lab [address] [place] [address] Fawad Roa MD [address] [place] [address] Type 2 diabetes mellitus without complications (CMS/HCC V24, CMS/HCC V28) Social History Tobacco Use Types Packs/Day Years [...] Procedure Name Priority Date/Time Associated Diagnosis Comments HEMOGLOBIN A1C Routine 02/28/2024 9:02 AM EST Type 2 diabetes mellitus without complications (CMS/[facility]) documented in this encounter Results * (ABNORMAL) Hemoglobin A1c (02/28/2024 9:02 AM EST) Hemoglobin A1C 7.5(H) <6.5 % LAB CHEMISTRY METHOD 02/28/2024 12:33 PM EST [facility] Mean Bld Glu Estim. 169 mg/dL LAB CHEMISTRY METHOD 02/28/2024 12:33 PM EST [facility] Blood Venous blood specimen / Unknown Venipuncture / Unknown 02/28/2024 9:02 AM EST 02/28/2024 10:42 AM EST us Fawad Roa MD LAB BLOOD ORDERABLES Final Result [facility] [address] [place] [address], documented in this encounter Visit Diagnoses Diagnosis Type 2 diabetes mellitus without complications (CMS/HCC V24, CMS/HCC V28) documented in this encounter Care Teams Cable Tv Installer Relationship Specialty Start Date End Date Angie Chaudhari MD [address] [place] [address] PCP - General 06/21/06 documented as of this encounter
--- OUTSIDE RECORDS SUMMARY | 2024-12-10 12:49 | XMS_ITS | Encounter Summary ---
[facility] Address [address] [place] [address] Care Team Providers Care Accounts Executive Name Role Phone Angie Chaudhari MD Primary Care Provider [phone] Encounter Details Date Type Department Care Team (Late st Contact Info) Description 06/25/2024 Lab Requisition [facility] - Main Lab 299 [facility] [place] [address] Fawad Roa MD [address] [place] [address] Type 2 diabetes mellitus without complications (CMS/HCC [...] Associated Diagnosis Comments COMPLETE BLOOD COUNT Routine 06/26/2024 8:50 AM EDT Type 2 diabetes mellitus without complications Essential (primary) hypertension HEMOGLOBIN A1C Routine 06/26/2024 8:50 AM EDT Type 2 diabetes mellitus without complications Essential (primary) hypertension COMPREHENSIVE METABOLIC PANEL Routine 06/26/2024 8:50 AM EDT Type 2 diabetes mellitus without complications Essential (primary) hypertension documented in this encounter Results * (ABNORMAL) Hemoglobin A1c (06/26/2024 8:50 AM EDT) Pathologist [facility] Hemoglobin A1C 7.2(H) <6.5 % LAB CHEMISTRY METHOD 06/26/2024 1:56 PM EDT [facility] Mean Bld Glu Estim. 160 mg/dL LAB CHEMISTRY METHOD 06/26/2024 1:56 PM EDT [facility] Blood Venous blood specimen / Unknown Venipuncture / Unknown 06/26/2024 8:50 AM EDT 06/26/2024 9:43 AM EDT Fawad Roa MD LAB BLOOD ORDERABLES Final Result [facility] [address] [place] [address], * (ABNORMAL) Comprehensive metabolic panel (06/26/2024 8:50 AM EDT) [facility] Sodium 139 133 - 145 mmol/L LAB CHEMISTRY METHOD 06/26/2024 10:37 AM [facility] Potassium 4.1 3.5 - 5.5 mmol/L LAB CHEMISTRY METHOD 06/26/2024 10:37 AM [facility] Chloride 106 96 - 110 mmol/L LAB CHEMISTRY METHOD 06/26/2024 10:37 AM T [facility] CO2 24 21 - 32 mmol/L LAB CHEMISTRY METHOD 06/26/2024 10:37 AM [facility] Anion Gap 9 3 - 11 LAB CHEMISTRY METHOD 06/26/2024 10:37 AM [facility] Glucose 193(H) 70 - 100 mg/dL LAB CHEMISTRY METHOD 06/26/2024 10:37 AM [facility] BUN 14 5 - 25 mg/dL LAB CHEMISTRY METHOD 06/26/2024 10:37 AM [facility] Creatinine 0.80 0.50 - 1.10 mg/dL LAB CHEMISTRY METHOD 06/26/2024 10:37 AM [facility] eGFR 79 >=60 mL/min/1. 73m2 LAB CHEMISTRY METHOD 06/26/2024 10:37 AM [facility] Comment:Calculation based on the Chronic Kidney Disease Epidemiology Collaboration (CKD-EPI) equation refit without adjustment for race. BUN/Creatinine Ratio 17.5 LAB CHEMISTRY METHOD 06/26/2024 10:37 AM [facility] Calcium 9.2 8.5 - 10.5 mg/dL LAB CHEMISTRY METHOD 06/26/2024 10:37 AM [facility] AST (SGOT) 14 10 - 42 unit/L LAB CHEMISTRY METHOD 06/26/2024 10:37 AM [facility] ALT (SGPT) 8(L) 10 - 60 unit/L LAB CHEMISTRY METHOD 06/26/2024 10:37 AM [facility] Alkaline Phosphatase 65 42 - 121 unit/L LAB CHEMISTRY METHOD 06/26/2024 10:37 AM [facility] Total Protein 7.5 6.0 - 8.0 g/dL LAB CHEMISTRY METHOD 06/26/2024 10:37 AM [facility] Albumin 3.7 3.2 - 5.0 g/dL LAB CHEMISTRY METHOD 06/26/2024 10:37 AM [facility] Total Bilirubin 0.8 0.0 - 1.4 mg/dL LAB CHEMISTRY METHOD 06/26/2024 10:37 AM [facility] Blood Venous blood specimen / Unknown Venipuncture / Unknown 06/26/2024 8:50 AM EDT 06/26/2024 9:47 AM EDT us Fawad Roa MD LAB BLOOD ORDERABLES Final Result [facility] [address] [place] [address], * (ABNORMAL) Complete blood count (06/26/2024 8:50 AM EDT) WBC 9.2 4.8 - 10.8 K/mcL LAB HEMETOLOGY METHOD 06/26/2024 9:56 AM EDT [facility] RBC 4.00 3.80 - 4.80 M/mcL LAB HEMETOLOGY METHOD 06/26/2024 9:56 AM EDT [facility] Hemoglobin 13.2 11.5 - 16.0 g/dL LAB HEMETOLOGY METHOD 06/26/2024 9:56 AM [facility] Hematocrit 37.8 35.0 - 47.0 % LAB HEMETOLOGY METHOD 06/26/2024 9:56 AM EDT [facility] MCV 94.5 79.0 - 98.0 FL LAB HEMETOLOGY METHOD 06/26/2024 9:56 AM EDT [facility] MCH 33.0(H) 27.0 - 32.0 pcg LAB HEMETOLOGY METHOD 06/26/2024 9:56 AM [facility] MCHC 34.9 32.0 - 37.0 g/dL LAB HEMETOLOGY METHOD 06/26/2024 9:56 AM EDT [facility] RDW 12.3 11.0 - 15.0 % LAB HEMETOLOGY METHOD 06/26/2024 9:56 AM EDT [facility] Platelets 272 130 - 400 K/mcL LAB HEMETOLOGY METHOD [facility]24 [facility] MPV 10.5 7.0 - 11.0 FL LAB HEMETOLOGY METHOD 06/26/2024 9:56 AM EDT [facility] NRBC 0.0 <1.0 % LAB HEMETOLOGY METHOD 06/26/2024 9:56 AM EDT [facility] NRBC Absolute 0.00 <0.10 K/mcL LAB HEMETOLOGY METHOD 06/26/2024 9:56 AM EDT [facility] Blood Venous blood specimen / Unknown Venipuncture / Unknown 06/26/2024 8:50 AM EDT 06/26/2024 9:43 AM EDT us Fawad Roa MD LAB BLOOD ORDERABLES Final Result [facility] [address] [place] [address], documented in this encounter Visit Diagnoses Diagnosis Type 2 diabetes mellitus without complications (CMS/HCC V24, CMS/HCC V28) Essential (primary) hypertension Unspecified essential hypertension documented in this encounter Care Teams Accounts Executive Relationship Specialty Start Date End Date Angie Chaudhari MD [address] [place] [address] PCP - General 06/21/06 documented as of this encounter
--- OUTSIDE RECORDS SUMMARY | 2024-12-10 12:49 | XMS_ITS | Encounter Summary ---
Author Organization [facility]aura [facility] Address [address] [place] [address] Care Team Providers Care Spa Coordinator Name Role Phone Angie Chaudhari MD Primary Care Provider Encounter Details Date Type Department Care Team (Late st Contact Info) Description 02/25/2024 Lab Requisition [facility] - Main Lab 299 [facility] [place] [address] Fawad Roa MD [address] [place] [address] Type 2 diabetes mellitus without complications (CMS/HCC [...] on file documented as of this encounter Visit Diagnoses Diagnosis Type 2 diabetes mellitus without complications (CMS/HCC V24, CMS/HCC V28) documented in this encounter Care Teams Spa Coordinator Relationship Specialty Start Date End Date Angie Chaudhari MD [address] [place] [phone] PCP - General 06/21/06 documented as of this encounter
--- OUTSIDE RECORDS SUMMARY | 2024-12-10 12:49 | XMS_ITS | Encounter Summary ---
[facility] Address [address] [place] [address] Care Team Providers Care Slope Hoist Operator Name Role Phone Angie Chaudhari MD Primary Care Provider [phone] Encounter Details Date Type Department Care Team (Late st Contact Info) Description 03/08/2024 Lab Requisition [facility] - Main Lab 299 [facility] [place] [address] Fawad Roa MD [address] [place] [address] Anemia, unspecified; Type 2 diabetes mellitus without complications (CMS/HCC [...] Associated Diagnosis Comments COMPLETE BLOOD COUNT Routine 03/08/2024 7:15 AM EST Anemia, unspecified Type 2 diabetes mellitus without complications (CMS/HCC) HEMOGLOBIN A1C Routine 03/08/2024 7:15 AM EST Anemia, unspecified Type 2 diabetes mellitus without complications (CMS/HCC) BASIC METABOLIC PANEL Routine 03/08/2024 7:15 AM EST Anemia, unspecified Type 2 diabetes mellitus without complications (CMS/HCC) documented in this encounter Results * (ABNORMAL) Hemoglobin A1c (03/08/2024 7:15 AM EST) Hemoglobin A1C 7.5(H) <6.5 % LAB CHEMISTRY METHOD 03/08/2024 2:03 PM EST [facility] Mean Bld Glu Estim. 169 mg/dL LAB CHEMISTRY METHOD 03/08/2024 2:03 PM [facility] Blood Venous blood specimen / Unknown Venipuncture / Unknown 03/08/2024 7:15 AM EST 03/08/2024 9:14 AM EST Fawad Roa MD LAB BLOOD ORDERABLES Final Result [facility] [address] [place] [address], * (ABNORMAL) Basic metabolic panel (03/08/2024 7:15 AM EST) Pathologist [facility] Sodium 139 133 - 145 mmol/L LAB CHEMISTRY METHOD 03/08/2024 10:34 AM [facility] Potassium 4.2 3.5 - 5.5 mmol/L LAB CHEMISTRY METHOD 03/08/2024 10:34 AM [facility] Chloride 105 96 - 110 mmol/L LAB CHEMISTRY METHOD 03/08/2024 10:34 AM [facility] CO2 26 21 - 32 mmol/L LAB CHEMISTRY METHOD 03/08/2024 10:34 AM [facility] Anion Gap 8 3 - 11 LAB CHEMISTRY METHOD 03/08/2024 10:34 AM [facility] Glucose 171(H) 70 - 100 mg/dL LAB CHEMISTRY METHOD 03/08/2024 10:34 AM [facility] BUN 17 5 - 25 mg/dL LAB CHEMISTRY METHOD 03/08/2024 10:34 AM [facility] Creatinine 0.93 0.50 - 1.10 mg/dL LAB CHEMISTRY METHOD 03/08/2024 10:34 AM [facility] eGFR 66 >=60 mL/min/1. 73m2 LAB CHEMISTRY METHOD 03/08/2024 10:34 AM EST [facility] Comment:Calculation based on the Chronic Kidney Disease Epidemiology Collaboration (CKD-EPI) equation refit without adjustment for race. BUN/Creatinine Ratio 18.3 LAB CHEMISTRY METHOD 03/08/2024 10:34 AM [facility] Calcium 9.1 8.5 - 10.5 mg/dL LAB CHEMISTRY METHOD 03/08/2024 10:34 AM [facility] Blood Venous blood specimen / Unknown Venipuncture / Unknown 03/08/2024 7:15 AM EST 03/08/2024 9:14 AM EST Fawad Roa MD LAB BLOOD ORDERABLES Final Result [facility] [address] [place] [address], * (ABNORMAL) Complete blood count (03/08/2024 7:15 AM EST) WBC 8.5 4.8 - 10.8 K/mcL LAB HEMETOLOGY METHOD 03/08/2024 10:16 AM [facility] RBC 4.10 3.80 - 4.80 M/mcL LAB HEMETOLOGY METHOD 03/08/2024 10:16 AM [facility] Hemoglobin 13.5 11.5 - 16.0 g/dL LAB HEMETOLOGY METHOD 03/08/2024 10:16 AM [facility] Hematocrit 40.1 35.0 - 47.0 % LAB HEMETOLOGY METHOD 03/08/2024 10:16 AM [facility] MCV 96.9 79.0 - 98.0 FL LAB HEMETOLOGY METHOD 03/08/2024 10:16 AM EST [facility] MCH 32.6(H) 27.0 - 32.0 pcg LAB HEMETOLOGY METHOD 03/08/2024 10:16 AM [facility] MCHC 33.7 32.0 - 37.0 g/dL LAB HEMETOLOGY METHOD 03/08/2024 10:16 AM EST [facility] RDW 12.5 11.0 - 15.0 % LAB HEMETOLOGY METHOD 03/08/2024 10:16 AM EST [facility] Platelets 285 130 - 400 K/mcL LAB HEMETOLOGY METHOD 03/08/2024 10:16 AM [facility] MPV 10.5 7.0 - 11.0 FL LAB HEMETOLOGY METHOD 03/08/2024 10:16 AM EST [facility] NRBC 0.0 <1.0 % LAB HEMETOLOGY METHOD 03/08/2024 10:16 AM [facility] NRBC Absolute 0.00 <0.10 K/mcL LAB HEMETOLOGY METHOD 03/08/2024 10:16 AM [facility] Blood Venous blood specimen / Unknown Venipuncture / Unknown 03/08/2024 7:15 AM EST 03/08/2024 9:14 AM EST us Fawad Roa MD LAB BLOOD ORDERABLES Final Result [facility] [address] [place] [address], documented in this encounter Visit Diagnoses Diagnosis Anemia, unspecified Type 2 diabetes mellitus without complications (CMS/HCC V24, CMS/HCC V28) documented in this encounter Care Teams Slope Hoist Operator Relationship Specialty Start Date End Date Angie Chaudhari MD [address] [place] [phone] PCP - General 06/21/06 documented as of this encounter
== END 2024-12-10 10:53 | disposition home or self-care (01) ==
LOC: HO.HSM 10:30
PROVIDERS: PCP Internal Medicine; Visit Provider Psychiatry & Neurology Neurology
DX: G20.A2 Parkinson's disease without dyskinesia, with fluctuations (principal)
CPT/HCPCS: 99214

== ENCOUNTER → 2024-12-10 10:29 | Outpatient (BNVA) | payer MEDICARE, SELFPAY | PROVIDERS: PCP Internal Medicine; Visit Provider Psychiatry & Neurology Neurology | DX: G20.A2 Parkinson's disease without dyskinesia, with fluctuations (principal) | CPT/HCPCS: 99212 ==